=== PATIENT | female | born 1990 | race Caucasian/White ===

== ENCOUNTER 2021-10-24 11:02 | Emergency (ER) | payer SELFPAY ==
[2021-10-24] MEDS ORDERED: Ketorolac 60 MG/2 ML SDV IM ONE (11:30)
[2021-10-24 12:01] LABS: CORONAVIRUS COVID-19 NAA NEGATIVE (NEGATIVE)
== END 2021-10-24 12:30 | disposition home or self-care (01) ==
LOC: JD.ED 11:02
DX: J02.8 Acute pharyngitis due to other specified organisms (principal); Z88.0 Allergy status to penicillin; Z72.0 Tobacco use; Z20.822 Contact with and (suspected) exposure to COVID-19
CPT/HCPCS: 0241U; 87651; 96372; 99283; J1885; 99284

== ENCOUNTER 2021-11-18 22:36 | Emergency (ER) | payer OTHER | END 2021-11-19 01:30 | disposition home or self-care (01) | LOC: JD.ED 22:36 | DX: S63.501A Unspecified sprain of right wrist, initial encounter (principal); Z88.0 Allergy status to penicillin; Z72.0 Tobacco use; W18.30XA Fall on same level, unspecified, initial encounter | CPT/HCPCS: 73110-26-RT; 73110-RT; 99283 ==

== ENCOUNTER 2022-01-15 23:26 | Emergency (ER) | payer OTHER ==
[2022-01-16] MEDS ORDERED: Acetaminophen/HYDROcodone 325-5 MG Tab PO ONE (00:23)
== END 2022-01-16 01:58 | disposition home or self-care (01) ==
LOC: JD.ED 23:26
DX: R20.2 Paresthesia of skin (principal); F17.210 Nicotine dependence, cigarettes, uncomplicated; E66.9 Obesity, unspecified; Z68.30 Body mass index [BMI] 30.0-30.9, adult; Z88.0 Allergy status to penicillin
CPT/HCPCS: 73110; 73130; 99284; A9270; 99283